=== PATIENT | female | born 1985 | race African-American/Black ===

== ENCOUNTER 2017-09-03 17:50 | Inpatient (IN) | payer OTHER ==
[2017-09-03] MEDS ORDERED: TUBERCULIN PPD 5 TU/0.1ML SYRINGE (IN PATIENT USE ONLY) ID ONE ×2 (18:14→22:15)
[2017-09-03] MEDS ORDERED: AMPICILLIN - 2 GM in SODIUM CHLORIDE 100 ML IVPB ONE (18:15)
[2017-09-03] MEDS ORDERED: DEXTROSE 5%-LACTATED RINGERS 1,000 ML IV SCH (18:30)
[2017-09-03 18:45] VITALS: BMI 35.0
[2017-09-03 19:08] LABS: BASO % 0.4 % (0-2.0); EOS % 0.6 % (0-4.5); HEMATOCRIT 32.9 % (32.4-45.2); HEMOGLOBIN 10.9 GM/dL (10.7-15.3); LYMPH % 11.7 % (8-40); MCH 29.8 pg (25.7-33.7); MEAN CELL VOLUME 90.2 fl (80-96); MONO % 10.4 % (3.8-10.2); NEUT % 76.9 % (42.8-82.8); PLATELET COUNT 274 K/MM3 (134-434); RBC 3.65 M/mm3 (3.60-5.2); RDW 14.9 % (11.6-15.6); WHITE BLOOD COUNT 8.3 K/mm3 (4.0-10.0)
[2017-09-03] MEDS ORDERED: PROMETHAZINE HCL 25 MG/1 ML VIAL IVPUSH ONE (19:15)
[2017-09-03] MEDS ORDERED: BUTORPHANOL TARTRATE 1 MG/ML VIAL IVPUSH ONE (19:15)
[2017-09-03 19:20] LABS: INR 0.93 (0.82-1.09); PROTHROMBIN TIME (PATIENT) 10.5 SEC (9.98-11.88)
[2017-09-03 19:23] LABS: ACTIVATED PTT 25.6 SECONDS (26.9-34.4)
[2017-09-03 19:31] LABS: ANION GAP 8 (8-16); BLOOD UREA NITROGEN 9 mg/dL (7-18); CALCIUM 8.2 mg/dL (8.5-10.1); CHLORIDE 106 mmol/L (98-107); CO2 25 mmol/L (21-32); CREATININE 0.9 mg/dL (0.55-1.02); GLUCOSE,RANDOM 90 mg/dL (74-106); POTASSIUM 4.1 mmol/L (3.5-5.1); SODIUM 139 mmol/L (136-145)
[2017-09-03] MEDS ORDERED: AMPICILLIN SODIUM 1 GM VIAL ONE (21:46)
[2017-09-03] MEDS: ELECTROLYTE-148 SOLN 1,000 ML IV SCH (22:00)
[2017-09-03] MEDS: AMPICILLIN - 1 GM in SODIUM CHLORIDE 100 ML IVPB SCH (22:05)
[2017-09-04] MEDS ORDERED: AMPICILLIN SODIUM 1 GM VIAL ONE ×4 (01:57→17:59)
[2017-09-04] MEDS: AMPICILLIN - 1 GM in SODIUM CHLORIDE 100 ML IVPB SCH ×6 (02:15→23:29)
--- NOTE | 2017-09-04 06:52 | HP ---
Past Medical History - Primary Care Physician PCP:: Josefa Kruse - Admission Chief Complaint: 31 yo G P EDC EGA 37.4 admitted due to srom at 5 pm. Pt with SGAand was schelduled for induction. IVF shortened cervix on progesterone. Followed by M due to suspected SGA low panarama. HIV neg. GBS neg History of Present Illness: 31 yo EDC 09/07 ega 37.6 weeks admitted due to srom hx of short cervix on progesterone Hx fibroids IVF low panarama SGA pregnacy followed by MFM HIV neg hx fibroids HSV hx History Source: Patient - Past Medical History ...: 3 ...Para: 0 ...Term: 0 ...: 0 ...Spon : 2 ...Induced : 0 ...Multiple Gestation: 0 ...LMP: 12/17/16 ... Weeks Gestation by Dates: 37.1 ...EDC by Dates: 09/23/17 ...EDC by Sono: 09/19/17 - Past Surgical History Past Surgical History: Yes: Appendectomy Hx Myomectomy: No Hx Transabdominal Cerclage: No - Smoking History Smoking history: Never smoked Have you smoked in the past 12 months: No - Alcohol/Substance Use Hx Alcohol Use: No History of Substance Use: reports: None - Social History Usual Living Arrangement: Yes: With Spouse History of Recent Travel: No Home Medications - Allergies Allergies/Adverse Reactions: Allergies Allergy/AdvReac Type Severity Reaction Status Date / Time No Known Drug Allergies Allergy Verified 09/03/17 18:16 - Home Medications Home Medications: Ambulatory Orders Vit/Iron Fum/Folic AC [ Tablet] 1 tab PO DAILY 05/30/17 Progesterone, Micronized [Endometrin] 100 mg VG HS 05/30/17 Review of Systems - Review of Systems Constitutional: reports: No Symptoms Eyes: reports: No Symptoms HENT: reports: No Symptoms Neck: reports: No Symptoms Cardiovascular: reports: No Symptoms Respiratory: reports: No Symptoms Gastrointestinal: reports: No Symptoms Genitourinary: reports: No Symptoms Breasts: reports: No Symptoms Reported Musculoskeletal: reports: No Symptoms Integumentary: reports: No Symptoms Neurological: reports: No Symptoms Endocrine: reports: No Symptoms Hematology/Lymphatic: reports: No Symptoms Psychiatric: reports: No Symptoms Physical Exam - Maternity Vital Signs: Vital Signs Temperature 98.1 F 09/04/17 06:00 Pulse Rate 75 09/04/17 06:00 Respiratory Rate 09/04/17 06:00 Blood Pressure 131/59 09/04/17 06:00 O2 Sat by Pulse Oximetry (%) Constitutional: Yes: Well Nourished, No Distress Lungs: Clear to auscultation Breast(s): Yes: WNL - Abdominal Exam/OB Fundal Height: 40 Number of Fetuses: Single Presentation: Vertex Category: I Decelerations: None - Vaginal Exam/OB Dilatation (cm): 2 Effacement (%): 80 Amniotic Membrane Status: Ruptured Amniotic Fluid: Yes: Clear Presentation: Vertex/Position - Physical Exam Psychiatric: Yes: WNL, Alert, Oriented - Labs Lab Results: CBC, BMP 09/03/17 18:50 09/03/17 18:50 Hemorrhage Risk Assessment - Risk Factors Medium Risk Factors: Yes: Large myomas Risk Score: 1 Risk Level: Medium Risk Problem List - Problems (1) IUGR (intrauterine growth restriction) affecting care of mother Code(s): O36.5990 - MATERN CARE FOR OTH OR SUSP POOR FETL GRTH, UNSP TRI, UNSP Qualifiers: Fetus number: single or unspecified fetus (2) Spontaneous rupture of membranes Code(s): GQC5227 - Assessment/Plan IUP at 37.6 weeks srom ivf pregnacy hx of cervical incompetence Prodromal labor Cat1 - spontaneous 2 min decel Plan Observation
--- NOTE | 2017-09-04 07:29 | PN ---
Ante-Partal Exam - Subjective Subjective: Pt with cramping Vital Signs: Vital Signs Temperature 98.1 F 09/04/17 06:00 Pulse Rate 75 09/04/17 06:00 Respiratory Rate 09/04/17 06:00 Blood Pressure 131/59 09/04/17 06:00 O2 Sat by Pulse Oximetry (%) Bleeding: No Headache: No - Contractions Contractions: Yes Regularity: Irregular Intensity: Mild Monitor Mode: External - Exam during Labor Category: I Monitor Decelerations: None Exam: Vaginal Dilatation (cm): 3 cm Amniotic Membrane Status: Intact Presentation: Vertex Station: 0 - Intrapartum Hemorrhage Risk Risk Score: 1 Risk Level: Medium Risk - Assessment/Plan Assessment/Plan: IVF preg srom iup @ 38 week Fibroids GBS neg Plan Pitocin if no active labor
[2017-09-04] MEDS ORDERED: OXYTOCIN 30 UNITS in 0.9% NS 30 UNIT/500 ML INFUS.BAG IVPB SCH (08:15)
[2017-09-04] MEDS: ELECTROLYTE-148 SOLN 1,000 ML IV SCH ×2 (11:24→16:15)
[2017-09-04] MEDS ORDERED: OXYTOCIN 15 UNITS/ LR 250 ML 250 ML IVPB SCH (11:45)
[2017-09-04] MEDS ORDERED: FENTANYL/BUPIVACAINE/NS/PF - PCEA - 50 ML DISP.SYRIN EP ONE (14:58)
[2017-09-04] MEDS ORDERED: FENTANYL/BUPIVACAINE/NS/PF - PCEA - 50 ML DISP.SYRIN EP SCH (15:20)
[2017-09-04] MEDS ORDERED: NALOXONE HCL 0.4 MG/ML VIAL IVPUSH PRN (15:27)
[2017-09-04] MEDS ORDERED: OXYTOCIN 20 UNITS in 0.9% NS 20 UNIT/1,000 ML INFUS.BAG IV ONE (17:14)
--- NOTE | 2017-09-04 18:28 | PN ---
Ante-Partal Exam - Subjective Subjective: Pt sp epidural Vital Signs: Vital Signs Temperature 98.0 F 09/04/17 18:00 Pulse Rate 81 09/04/17 18:00 Respiratory Rate 20 09/04/17 18:00 Blood Pressure 113/71 09/04/17 18:00 O2 Sat by Pulse Oximetry (%) 100 09/04/17 18:00 Bleeding: No Headache: No Visual changes: No Right upper quadrant pain: No - Contractions Contractions: Yes Regularity: Regular Intensity: Moderate Monitor Mode: External - Exam during Labor Variability: Moderate Category: I Monitor Accelerations: Present Monitor Decelerations: None Exam: Vaginal Dilatation (cm): FD Effacement (%): 100 Amniotic Membrane Status: Ruptured Amniotic Fluid: Clear Presentation: Vertex Station: 0 - Intrapartum Hemorrhage Risk Risk Score: 1 Risk Level: Medium Risk - Assessment/Plan Assessment/Plan: 2nd stage of labor 38 week fibroids Plan anticipate vaginal delivery dc Epidural
--- NOTE | 2017-09-04 20:17 | PN ---
Ante-Partal Exam - Subjective Subjective: Pt doing well Vital Signs: Vital Signs Temperature 98.0 F 09/04/17 18:00 Pulse Rate 94 H 09/04/17 18:45 Respiratory Rate 20 09/04/17 18:45 Blood Pressure 121/74 09/04/17 18:45 O2 Sat by Pulse Oximetry (%) 100 09/04/17 18:45 Headache: No Visual changes: No Right upper quadrant pain: No - Contractions Contractions: Yes Regularity: Regular Monitor Mode: External - Exam during Labor Category: II Monitor Decelerations: Variable Exam: Vaginal Dilatation (cm): FD Amniotic Membrane Status: Ruptured Amniotic Fluid: Clear Presentation: Vertex Station: +2 - Intrapartum Hemorrhage Risk Risk Score: 1 Risk Level: Medium Risk - Assessment/Plan Assessment/Plan: 2nd stage of labor Cat 1 Plan anticipate vaginal delivery
[2017-09-04] MEDS ORDERED: BENZOCAINE 28 GM HEMORRHOIDAL OINTMENT PR PRN (20:18)
[2017-09-04] MEDS ORDERED: IBUPROFEN 600 MG TABLET (FP) PO PRN (20:18)
[2017-09-04] MEDS ORDERED: BENZOCAINE 20% 57 GM BOTTLE TP PRN (20:18)
[2017-09-04] MEDS ORDERED: METHYLERGONOVINE MALEATE 0.2 MG/1 ML AMP IM PRN (20:18)
[2017-09-04] MEDS ORDERED: WITCH HAZEL 50% (TUCKS) 40 PAD/JAR PAD TP PRN (20:18)
[2017-09-04] MEDS ORDERED: ACETAMINOPHEN 325 MG TABLET (FP) PO PRN (20:18)
[2017-09-04] MEDS ORDERED: BISACODYL 10 MG SUPP.RECT RC PRN (20:18)
[2017-09-04] MEDS ORDERED: D5W-LR W/ 20 UNITS OXYTOCIN 1,000 ML IV SCH (20:30)
[2017-09-04] MEDS ORDERED: OXYTOCIN 20 UNITS in 0.9% NS 20 UNIT/1,000 ML INFUS.BAG IV SCH (20:45)
[2017-09-04 21:03] LABS: ARTERIAL BLOOD GAS pH 7.35 (7.35-7.45)
[2017-09-04 21:09] LABS: ARTERIAL BLD GAS O2 SATURATION 79.2 % (90-98.9); ARTERIAL BLOOD GAS PO2 38.3 mmHg (80-100)
[2017-09-04 21:10] LABS: VENOUS PC02 52.5 mmHg (38-52); VENOUS PH 7.27 (7.32-7.42)
[2017-09-04 21:11] LABS: VENOUS PO2 22.9 mmHg (28-48)
--- NOTE | 2017-09-04 22:33 | PN ---
Delivery - Delivery Type of Anesthesia: Epidural Episiotomy/Laceration: Midline EBL (cc): 300 (Nuchal X 1) Delivery, Single - Stages of Labor Date 1st Stage Initiatied: 09/03/17 Time 1st Stage Initiated: 14:00 Date 2nd Stage Initiated: 09/04/17 Time 2nd Stage Initiated: 17:10 Date of Delivery: 09/04/17 Time of Delivery: 19:59 Time Placenta Delivered: 20:00 Placenta: Yes: Spontaneous - Condition of Sound Assistant/Finance Analyst Present: No Infant Gender: Female Weight: 5 lb 13 oz Position: OA Total Hours ROM (Hrs/Mins): 27H0M - 1 Minute Total Score: 9 5 Minutes Total Score: 9 - [place] Feeding Plan Initial Plan: Exclusive throughout hospitalization
[2017-09-05] MEDS: AMPICILLIN - 1 GM in SODIUM CHLORIDE 100 ML IVPB SCH (02:21)
[2017-09-05 07:25] LABS: BASO % 0.4 % (0-2.0); EOS % 0.4 % (0-4.5); HEMATOCRIT 29.8 % (32.4-45.2); HEMOGLOBIN 9.7 GM/dL (10.7-15.3); LYMPH % 8.4 % (8-40); MCH 29.1 pg (25.7-33.7); MCHC 32.5 g/dl (32.0-36.0); MEAN CELL VOLUME 89.6 fl (80-96); MEAN PLT VOLUME 7.8 fl (7.5-11.1); MONO % 10.6 % (3.8-10.2); NEUT % 80.2 % (42.8-82.8); PLATELET COUNT 239 K/MM3 (134-434); RBC 3.32 M/mm3 (3.60-5.2); RDW 14.9 % (11.6-15.6)
--- NOTE | 2017-09-05 09:00 | PN ---
Post Progress Note - Subjective Subjective: 31 yo Para 1 status post vaginal delivery, seen and evaluated. Doing well. No complaints. Post Day: 1 Type of Delivery: Vital Signs: Vital Signs Temperature 97.9 F 09/05/17 06:00 Pulse Rate 91 H 09/05/17 06:00 Respiratory Rate 20 09/05/17 06:00 Blood Pressure 116/68 09/05/17 06:00 O2 Sat by Pulse Oximetry (%) 99 09/04/17 21:00 Breast Exam: Yes: Soft Uterus: Yes: Fundus Firm Abdomen/GI: Yes: Abdomen soft, Tolerating PO Lochia: Yes: Rubra Lochia, amount: Moderate Extremities: Yes: Calves non-tender Activity: Ambulating - Labs Labs: CBC WBC 12.0 K/mm3 (4.0-10.0) H D 09/05/17 07:00 RBC 3.32 M/mm3 (3.60-5.2) L 09/05/17 07:00 Hgb 9.7 GM/dL (10.7-15.3) L D 09/05/17 07:00 Hct 29.8 % (32.4-45.2) L 09/05/17 07:00 MCV 89.6 fl (80-96) 09/05/17 07:00 MCH 29.1 pg (25.7-33.7) 09/05/17 07:00 MCHC 32.5 g/dl (32.0-36.0) 09/05/17 07:00 RDW 14.9 % (11.6-15.6) 09/05/17 07:00 Plt Count 239 K/MM3 (134-434) 09/05/17 07:00 MPV 7.8 fl (7.5-11.1) 09/05/17 07:00 Neutrophils % 80.2 % (42.8-82.8) 09/05/17 07:00 Lymphocytes % 8.4 % (8-40) D 09/05/17 07:00 Monocytes % 10.6 % (3.8-10.2) H 09/05/17 07:00 Eosinophils % 0.4 % (0-4.5) 09/05/17 07:00 Basophils % 0.4 % (0-2.0) 09/05/17 07:00 Problem List - Problems (1) Status post normal vaginal delivery Code(s): INQ7389 - Assessment/Plan Status post vaginal delivery Stable Continue routine care
--- NOTE | 2017-09-06 07:07 | DS ---
Physical Exam-SALES APPLICATIONS ENGINEER Vital Signs: Vital Signs Temperature 98.6 F 09/05/17 22:00 Pulse Rate 87 09/05/17 22:00 Respiratory Rate 20 09/05/17 22:00 Blood Pressure 109/52 09/05/17 22:00 O2 Sat by Pulse Oximetry (%) 99 09/04/17 21:00 Constitutional: Yes: Well Nourished, No Distress Cardiovascular: Yes: WNL Respiratory: Yes: WNL Gastrointestinal: Yes: WNL ....Post : Yes: Uterus firm, Uterus non-tender Musculoskeletal: Yes: WNL Extremities: Yes: WNL Edema: No Labs: CBC, BMP 09/05/17 07:00 09/03/17 18:50 Delivery - Delivery Type of Anesthesia: Epidural Episiotomy/Laceration: Midline EBL (cc): 300 (Nuchal X 1) Delivery, Single - Stages of Labor Date 1st Stage Initiatied: 09/03/17 Time 1st Stage Initiated: 14:00 Date 2nd Stage Initiated: 09/04/17 Time 2nd Stage Initiated: 17:10 Date of Delivery: 09/04/17 Time of Delivery: 19:59 Time Placenta Delivered: 20:00 Placenta: Yes: Spontaneous - Condition of Superintendent Service/Risk And Compliance Analytics Director Present: No Gender: Female Weight: 5 lb 13 oz Position: OA Total Hours ROM (Hrs/Mins): 27H0M - 1 Minute Total Score: 9 5 Minutes Total Score: 9 - Feeding Plan Initial Plan: Exclusive throughout hospitalization Discharge Summary Reason For Visit: LABOR Current Active Problems IUGR (intrauterine growth restriction) affecting care of mother (Acute) Spontaneous rupture of membranes (Acute) Status post normal vaginal delivery (Acute) Procedures: Principal: Normal Vaginal delivery Condition: Good - Instructions Referrals: Josefa Kruse MD [Staff Physician] - Disposition: HOME - Home Medications Comprehensive Discharge Medication List: Ambulatory Orders Vit/Iron Fum/Folic AC [ Tablet] 1 tab PO DAILY 05/30/17 Progesterone, Micronized [Endometrin] 100 mg VG HS 05/30/17 Ibuprofen [Motrin -] 600 mg PO QID PRN #28 tablet 09/04/17
[2017-09-06 08:47] VITALS: BP 115/64; PULSE 76; TEMP 97.6
== END 2017-09-06 13:40 | disposition home or self-care (01) | DRG 775 ==
LOC: JLDR 17:50 → J3W 09-04 22:51
PROVIDERS: ADMIT Obstetrics & Gynecology; ATTEND Obstetrics & Gynecology
PROC: 10E0XZZ Delivery of Products of Conception, External Approach (ICD-10-PCS; principal; 2017-09-04)
PROC: 0W8NXZZ Division of Female Perineum, External Approach (ICD-10-PCS; 2017-09-04)
DX: O36.5930 Maternal care for other known or suspected poor fetal growth, third trimester, not applicable or unspecified (principal); O34.13 Maternal care for benign tumor of corpus uteri, third trimester; D25.9 Leiomyoma of uterus, unspecified; Z3A.37 37 weeks gestation of pregnancy; Z37.0 Single live birth
CPT/HCPCS: 36415; 36600; 59409; 71046-TC; 80048; 82803; 85025; 85610; 85730; 86593; 86850; 86900; 86901; 87389

== ENCOUNTER 2018-04-30 07:41 | Day surgery (SDC) | payer OTHER ==
[2018-04-26 14:02] VITALS: BMI 30.3
--- NOTE | 2018-04-30 09:28 | HP ---
History & Physical Update - History History: No Change - Physical Physical: No Change - Assessment Assessment: No Change - Plan Plan: No Change (No change in HP)
[2018-04-30] MEDS ORDERED: MIDAZOLAM HCL 2 MG/2 ML SINGLE DOSE VIAL ONE (09:33)
[2018-04-30] MEDS ORDERED: IBUPROFEN 400 MG TABLET (FP) PO PRN (09:44)
[2018-04-30] MEDS ORDERED: ACETAMINOPHEN 325 MG TABLET (FP) PO PRN (09:44)
[2018-04-30] MEDS ORDERED: DEXAMETHASONE SOD PHOSPHATE 4 MG/1 ML VIAL ONE (09:48)
[2018-04-30] MEDS ORDERED: LIDOCAINE HCL/PF 2% SDV 5ML VIAL ONE (09:48)
[2018-04-30] MEDS ORDERED: PROPOFOL 20 ML ONE (09:50)
[2018-04-30] MEDS ORDERED: oxyCODONE HCL 5 MG TABLET PO PRN (10:38)
[2018-04-30] MEDS ORDERED: ONDANSETRON 4 MG/2 ML VIAL IVPUSH PRN (10:38)
--- NOTE | 2018-04-30 10:40 | OP ---
Operative Note - Note: Operative Date: 04/30/18 Pre-Operative Diagnosis: Submucosal myoma Operation: Hysteroscopic mYomectomy. Suction DC Findings: Submucosal myoma seen Post-Operative Diagnosis: Same as Pre-op Surgeon: Josefa Kruse Anesthesiologist/THERMODYNAMICS ENGINEER: Rosalino Fowler Anesthesia: General Estimated Blood Loss (mls): 25 Operative Report Dictated: Yes
[2018-04-30] MEDS ORDERED: LACTATED RINGERS SOLUTION 1,000 ML IV SCH (10:45)
[2018-04-30 12:17] VITALS: TEMP 97.7
[2018-04-30] MEDS ORDERED: ONDANSETRON 4 MG/2 ML VIAL ONE (13:20)
[2018-04-30] MEDS ORDERED: ONDANSETRON 4 MG/2 ML VIAL IVPB ONE (13:25)
[2018-04-30 15:26] VITALS: BP 114/86; PULSE 63
--- NOTE | 2018-04-30 19:51 | OP ---
DATE OF OPERATION: 04/30/2018 PREOPERATIVE DIAGNOSES: Menorrhagia, submucous myoma, endometrial polyps. OPERATION: Hysteroscopic myomectomy and suction dilatation and curettage. POSTOPERATIVE DIAGNOSES: Endometrial polyps and submucosal myoma, removed. SURGEON: Josefa Kruse MD BREAKER OILER: None. ANESTHESIOLOGIST: Rosalino Fowler MD ANESTHESIA: General. ESTIMATED BLOOD LOSS: 25 mL PROCEDURE: Patient was taken to the operating room, placed in dorsal lithotomy position, prepped and draped in the usual sterile fashion. Timeout was performed in accordance with hospital regulation. Speculum was placed in the vagina. Anterior lip of the cervix grasped with a single-tooth tenaculum. Cervix was then dilated to accommodate the resectoscope. Endometrial polyps and submucous myoma were seen. Cautery and cutting of the endometrial polyps and submucosal myoma. Cavity was noted to be concaved with myoma; so, a better cavity was then created by removal of the myoma. Cauterization of bleeding was done. Suction D&C was then performed. All instruments were removed. Polyp forceps were then used to remove any submucosal myoma. Estimated blood loss 25 mL. Patient tolerated the procedure well and was taken to recovery room in stable condition. Pad count was noted to be normal, and fluid deficit was 300 mL. JOSEFA KRUSE M.D. [id number]
--- NOTE | 2018-05-01 14:41 | PATH ---
Surgical Pathology Report Patient Name: ANURAG DUDLEY [facility]. Rec. #: [id number] /Age/Gender: 1985 (Age: 32) / F Account: [id number] Location: [facility] SURGICAL Taken: 04/30/2018 Received: 04/30/2018 Reported: 05/01/2018 Physicians: Josefa Kruse M.D. Specimen(s) Received SUBMUCOUS MYOMA Clinical History Irregular bleeding, endometrial polyp Final Diagnosis UTERUS, SUBMUCOUS MYOMA, HYSTEROSCOPIC MYOMECTOMY, SUCTION DILATION AND CURETTAGE: POLYPOID FRAGMENTS OF PROLIFERATIVE ENDOMETRIUM AND SMOOTH MUSCLE CONSISTENT WITH SUBMUCOSAL LEIOMYOMA. Electronically Signed Taniya Moseley M.D. Gross Description Received in formalin labeled "submucous myoma," is a 3 g, 3.3 x 2.8 x 0.4 cm aggregate of hodges soft tissue fragments. The formalin is filtered and the specimen is entirely submitted in 2 cassettes. /04/30/2018 saudi04/30/2018
== END 2018-04-30 14:30 | disposition home or self-care (01) ==
LOC: JASU-SURG 07:41
PROVIDERS: ATTEND Obstetrics & Gynecology
PROC: 0UB98ZZ Excision of Uterus, Via Natural or Artificial Opening Endoscopic (ICD-10-PCS; principal; 2018-04-30 08:30)
PROC: 0UDB7ZX Extraction of Endometrium, Via Natural or Artificial Opening, Diagnostic (ICD-10-PCS; 2018-04-30 08:30)
PROC: 0UJD8ZZ Inspection of Uterus and Cervix, Via Natural or Artificial Opening Endoscopic (ICD-10-PCS; 2018-04-30 08:30)
DX: N92.0 Excessive and frequent menstruation with regular cycle (principal); N84.0 Polyp of corpus uteri; D25.0 Submucous leiomyoma of uterus
CPT/HCPCS: 86850; 86900; 86901; 88305-TC; 94760

== ENCOUNTER 2020-02-16 19:40 | Inpatient (IN) | payer OTHER ==
[2020-02-16] MEDS: ELECTROLYTE-148 SOLN 1,000 ML IV SCH (20:00)
[2020-02-16 20:23] VITALS: BMI 37.5
[2020-02-16 20:47] LABS: BASO % 0.4 % (0-2.0); EOS % 0.7 % (0-4.5); HEMATOCRIT 39.1 % (32.4-45.2); HEMOGLOBIN 13.2 GM/dL (10.7-15.3); LYMPH % 15.1 % (8-40); MCH 34.2 pg (25.7-33.7); MCHC 33.8 g/dl (32.0-36.0); MEAN CELL VOLUME 101.3 fl (80-96); MEAN PLT VOLUME 8.3 fl (7.5-11.1); MONO % 10.8 % (3.8-10.2); PLATELET COUNT 229 K/MM3 (134-434); RBC 3.86 M/mm3 (3.60-5.2); RDW 14.3 % (11.6-15.6); WHITE BLOOD COUNT 8.5 K/mm3 (4.0-10.0)
[2020-02-16 20:55] LABS: INR 0.9 (0.83-1.09); PROTHROMBIN TIME (PATIENT) 10.6 SEC (9.7-13.0)
[2020-02-16] MEDS ORDERED: PROMETHAZINE HCL 25 MG/1 ML VIAL IVPUSH ONE (21:06)
[2020-02-16] MEDS ORDERED: DINOPROSTONE 10 MG VAGINAL SUPPOSITORY VG ONE (21:11)
[2020-02-16 21:15] LABS: BLOOD UREA NITROGEN 8.1 mg/dL (7-18); CALCIUM 9.2 mg/dL (8.5-10.1); CREATININE 0.9 mg/dL (0.55-1.3); POTASSIUM 3.8 mmol/L (3.5-5.1)
[2020-02-16] MEDS ORDERED: OXYTOCIN 30 UNITS in 0.9% NS 30 UNIT/500 ML INFUS.BAG IVPB ONE (21:28)
[2020-02-16] MEDS ORDERED: OXYTOCIN 30 UNITS in 0.9% NS 30 UNIT/500 ML INFUS.BAG IVPB SCH (21:30)
--- NOTE | 2020-02-16 21:35 | HP ---
Past Medical History - Primary Care Physician PCP:: Josefa Kruse - Admission Chief Complaint: Elderly multigravida. iup at 39 week. induction History of Present Illness: 34 yo EDC 02/21/2020 EGA 39 week admitted for induction of labor +AFM No bleeding History Source: Patient Limitations to Obtaining History: No Limitations - Past Medical History ...: 5 ...Para: 1 ...Term: 1 ...Spon : 2 ...Induced : 1 ...Living Children: 1 ...EDC by Susan: 02/21/20 - Past Surgical History Past Surgical History: Yes: Appendectomy Hx Myomectomy: No Hx Transabdominal Cerclage: No - Smoking History Smoking history: Never smoked Have you smoked in the past 12 months: No - Alcohol/Substance Use Hx Alcohol Use: No History of Substance Use: reports: None - Social History Usual Living Arrangement: Yes: With Spouse Do you think of yourself as: Straight/Heterosexual History of Recent Travel: No Home Medications - Allergies Allergies/Adverse Reactions: Allergies Allergy/AdvReac Type Severity Reaction Status Date / Time No Known Drug Allergies Allergy Verified 02/16/20 20:09 - Home Medications Home Medications: Ambulatory Orders Pnv No.95/Ferrous Fum/Folic AC [ Vitamin Tablet] 1 each PO DAILY 12/11/19 Review of Systems - Review of Systems Constitutional: reports: No Symptoms Eyes: reports: No Symptoms HENT: reports: No Symptoms Neck: reports: No Symptoms Cardiovascular: reports: No Symptoms Respiratory: reports: No Symptoms Gastrointestinal: reports: No Symptoms Genitourinary: reports: No Symptoms Breasts: reports: No Symptoms Reported Musculoskeletal: reports: No Symptoms Integumentary: reports: No Symptoms Neurological: reports: No Symptoms Endocrine: reports: No Symptoms Hematology/Lymphatic: reports: No Symptoms Psychiatric: reports: No Symptoms Physical Exam - Maternity Vital Signs: Vital Signs Temperature 98.8 F 02/16/20 20:12 Pulse Rate 95 H 02/16/20 20:12 Respiratory Rate 02/16/20 20:12 Blood Pressure 117/67 02/16/20 20:12 O2 Sat by Pulse Oximetry (%) Constitutional: Yes: Well Nourished, No Distress, Anxious Neck: Yes: WNL Cardiovascular: Yes: WNL, Regular Rate and Rhythm Lungs: Clear to auscultation Breast(s): Yes: WNL - Abdominal Exam/OB Fundal Height: 39 Number of Fetuses: Single Presentation: Vertex Contractions: Yes Regularity: Irregular Intensity: Unaware Monitor Mode: External Heart Rate Location: [facility] Category: I Accelerations: Non-Uniform Decelerations: None - Vaginal Exam/OB Vaginal Bleeding: No Dilatation (cm): 3-4 Effacement (%): 80 Amniotic Membrane Status: Intact Presentation: Vertex/Position - Physical Exam Musculoskeletal: Yes: WNL Extremities: Yes: WNL Edema: No Psychiatric: Yes: WNL, Alert, Oriented - Labs Lab Results: CBC, BMP 02/16/20 20:15 02/16/20 20:15 Hemorrhage Risk Assessment - Risk Factors Risk Score: 1 Risk Level: Medium Risk Problem List - Problems (1) Elderly multigravida in third trimester Code(s): O09.523 - SUPERVISION OF ELDERLY MULTIGRAVIDA, THIRD TRIMESTER (2) 39 weeks gestation of Code(s): Z3A.39 - 39 WEEKS GESTATION OF Assessment/Plan Elderly Multigr Cat 1 39 week Plan Pitocin augmentation pt desires epidural
[2020-02-16] MEDS ORDERED: OXYTOCIN 20 UNITS in 0.9% NS 20 UNIT/1,000 ML INFUS.BAG IV ONE (22:44)
[2020-02-16] MEDS ORDERED: LIDOCAINE HCL 1% PRESERVATIVE FREE - 30ML VIAL ONE (22:44)
[2020-02-17] MEDS: ELECTROLYTE-148 SOLN 1,000 ML IV SCH ×2 (00:20→02:44)
[2020-02-17] MEDS ORDERED: FENTANYL/BUPIVACAINE/NS/PF - PCEA - 50 ML DISP.SYRIN EP ONE (01:19)
[2020-02-17] MEDS ORDERED: PCA PUMP NR ONE (01:19)
[2020-02-17] MEDS ORDERED: BUPIVACAINE HCL/PF 0.25% (2.5MG/ML) 10 ML VIAL ONE ×2 (01:35→04:55)
[2020-02-17] MEDS ORDERED: NALOXONE HCL 0.4 MG/ML VIAL IVPUSH PRN (01:58)
[2020-02-17] MEDS ORDERED: FENTANYL/BUPIVACAINE/NS/PF - PCEA - 50 ML DISP.SYRIN EP SCH ×2 (02:00→04:47)
[2020-02-17] MEDS: BUTORPHANOL TARTRATE 1 MG/ML VIAL IVPB SCH (02:37)
--- NOTE | 2020-02-17 03:59 | PN ---
Ante-Partal Exam - Subjective Subjective: Called to evaluate due to late decels with low BP after epidural Vital Signs: Vital Signs Temperature 98.3 F 02/17/20 00:00 Pulse Rate 84 02/17/20 03:00 Respiratory Rate 20 02/17/20 03:00 Blood Pressure 61/28 L 02/17/20 03:00 O2 Sat by Pulse Oximetry (%) 100 02/17/20 03:00 Bleeding: No Headache: No Visual changes: No Right upper quadrant pain: No - Contractions Contractions: No Regularity: Irregular Monitor Mode: External - Exam during Labor Heart Rate: 150 Variability: Moderate Category: II Monitor Accelerations: Present Monitor Decelerations: Late Exam: Vaginal Dilatation (cm): 4 cm Amniotic Fluid: Clear Presentation: Vertex Station: -1 - Intrapartum Hemorrhage Risk Risk Score: 0 Risk Level: Low Risk - Assessment/Plan Assessment/Plan: Cat 2 due to low BP after epidural anesthesia SP meds to inc BP sp pitocin DCED will resume after cat 1 Plan Observe and restart pitocin if Cat 1
[2020-02-17] MEDS ORDERED: BISACODYL 10 MG SUPP.RECT PR PRN (06:58)
[2020-02-17] MEDS ORDERED: BENZOCAINE 28 GM HEMORRHOIDAL OINTMENT PR PRN (06:58)
[2020-02-17] MEDS ORDERED: WITCH HAZEL 50% (TUCKS) 40 PAD/JAR PAD TP PRN (06:58)
[2020-02-17] MEDS ORDERED: METHYLERGONOVINE MALEATE 0.2 MG/1 ML AMP IM PRN (06:58)
[2020-02-17] MEDS ORDERED: BENZOCAINE 20% 57 GM BOTTLE TP PRN (06:58)
--- NOTE | 2020-02-17 07:22 | PN ---
Ante-Partal Exam - Subjective Subjective: Pt with pressure to push Vital Signs: Vital Signs Temperature 97.8 F 02/17/20 06:00 Pulse Rate 92 H 02/17/20 06:45 Respiratory Rate 20 02/17/20 06:45 Blood Pressure 126/76 02/17/20 06:45 O2 Sat by Pulse Oximetry (%) 100 02/17/20 06:45 Bleeding: No Headache: No Visual changes: No Right upper quadrant pain: No - Contractions Contractions: Yes Monitor Mode: External - Exam during Labor Heart Rate: 150 Variability: Moderate Heart Rate Location: [facility] Category: I Monitor Accelerations: Present Exam: Vaginal Dilatation (cm): 10 Effacement (%): 100 Amniotic Membrane Status: Ruptured Presentation: Vertex - Intrapartum Hemorrhage Risk Risk Score: 0 Risk Level: Low Risk - Assessment/Plan Assessment/Plan: Cat 1 anticipate vaginal delivery
--- NOTE | 2020-02-17 07:23 | PN ---
Delivery - Delivery Vaginal Delivery: No Problems Type of Anesthesia: Epidural Episiotomy/Laceration: None EBL (cc): 250 Delivery, Single - Stages of Labor Placenta: Yes: Spontaneous - Condition of Shift Manager/Annealer Present: No Gender: Female Position: OA - [place] Feeding Plan Initial Plan: Elected not to breastfeed exclusively throughout hospitalization
[2020-02-17] MEDS ORDERED: OXYTOCIN 20 UNITS in 0.9% NS 20 UNIT/1,000 ML INFUS.BAG IV SCH (07:30)
[2020-02-17 08:14] LABS: CORD HCO3 23.6 mmHg (20-29); CORD PCO2 43.5 mmHg (30-78); CORD pH 7.353 (7.14-7.44)
[2020-02-17 08:16] LABS: CORD HCO3 27.2 mmHg (20-29); CORD PCO2 58.6 mmHg (30-78); CORD pH 7.284 (7.14-7.44)
[2020-02-17] MEDS: ACETAMINOPHEN 325 MG TABLET (FP) PO PRN ×2 (10:08→17:27)
[2020-02-17] MEDS: IBUPROFEN 600 MG TABLET (FP) PO PRN ×2 (10:08→17:28)
[2020-02-17] MEDS ORDERED: SENNOSIDES/DOCUSATE COMBO (SENNA PLUS) TABLET (UD) PO SCH (22:00)
[2020-02-18 08:49] VITALS: BP 124/79; PULSE 86; TEMP 98.1
[2020-02-18 09:08] LABS: BASO % 0.4 % (0-2.0); EOS % 0.7 % (0-4.5); HEMATOCRIT 38.8 % (32.4-45.2); HEMOGLOBIN 13.1 GM/dL (10.7-15.3); LYMPH % 16.6 % (8-40); MCH 34.5 pg (25.7-33.7); MCHC 33.7 g/dl (32.0-36.0); MEAN CELL VOLUME 102.4 fl (80-96); MEAN PLT VOLUME 8.2 fl (7.5-11.1); MONO % 7.4 % (3.8-10.2); NEUT % 74.9 % (42.8-82.8); PLATELET COUNT 201 K/MM3 (134-434); RBC 3.79 M/mm3 (3.60-5.2); RDW 14.1 % (11.6-15.6); WHITE BLOOD COUNT 9.1 K/mm3 (4.0-10.0)
--- NOTE | 2020-02-25 12:43 | DS ---
Physical Exam-PLATFORM STAPLER Vital Signs: Vital Signs Temperature 98.1 F 02/18/20 11:00 Pulse Rate 86 02/18/20 11:00 Respiratory Rate 20 02/18/20 11:00 Blood Pressure 124/79 02/18/20 11:00 O2 Sat by Pulse Oximetry (%) 99 02/18/20 11:00 Constitutional: Yes: Well Nourished, No Distress Gastrointestinal: Yes: WNL, Soft ....Post : Yes: Uterus firm, Uterus non-tender Neurological: Yes: WNL, Alert, Oriented Labs: CBC, BMP 02/18/20 08:20 02/16/20 20:15 Delivery - Delivery Vaginal Delivery: No Problems Type of Anesthesia: Epidural Episiotomy/Laceration: None EBL (cc): 250 Delivery, Single - Stages of Labor Date 1st Stage Initiatied: 02/17/20 Time 1st Stage Initiated: 00:00 Date 2nd Stage Initiated: 02/17/20 Time 2nd Stage Initiated: 06:45 Date of Delivery: 02/17/20 Time of Delivery: 07:08 Time Placenta Delivered: 07:10 Placenta: Yes: Spontaneous - Condition of Shelver/Alternative Education Teacher Present: Evan: Morgan Tena Infant Gender: Female Weight: 6 lb 14 oz Position: OA Total Hours ROM (Hrs/Mins): 3hrs/40mins - 1 Minute Total Score: 9 5 Minutes Total Score: 9 - Feeding Plan Initial Plan: Elected not to breastfeed exclusively throughout hospitalization Discharge Summary Problems reviewed: Yes Procedures: Principal: Normal vaginal delivery Condition: Good - Instructions Diet, Activity, Other Instructions: Physical activity Resume your normal everyday activity as tolerated no heavy lifting or exercise until seen by your surgeon. You may walk unlimited bogdan of and climb stairs. You may resume driving the car when you feel safe and comfortable behind the wheel. No sexual activity as instructed. Wound care If you have a bandage, leave it on, and keep dry for 48-72 hours. After that time discard the outer bandage. If they are tapes on the skin under the out of bandage leave them in place. They will peel off in the next 7 to 10 days. Do Not Peel them off. You may shower the day after surgery. If there are tapes present on the skin, you may shower over them. Diet There are no dietary restrictions. Eat healthy, high-fiber foods. Drink 6 to 8 glasses of liquid each day. This will assist in keeping your bowels are regular. Pain management You may take Tylenol or acetaminophen or Ibuprofen (for example, Motrin, Advil etc.) from my pain prescription medication is ordered should be taken as prescribed for moderate to severe pain. Call MD for any of the following: Severe pain not relieved by medication Fever of 101 or higher Excessive bleeding or drainage on dressing Inability to urinate Referrals: Josefa Kruse MD [Staff Physician] - Disposition: HOME - Home Medications Comprehensive Discharge Medication List: Ambulatory Orders Pnv No.95/Ferrous Fum/Folic AC [ Vitamin Tablet] 1 each PO DAILY 12/11/19
== END 2020-02-18 11:10 | disposition home or self-care (01) | DRG 807 ==
LOC: JLDR 19:40 → J3W 02-17 08:53
PROVIDERS: ADMIT Obstetrics & Gynecology; ATTEND Obstetrics & Gynecology
PROC: 10E0XZZ Delivery of Products of Conception, External Approach (ICD-10-PCS; principal; 2020-02-17)
DX: O80 Encounter for full-term uncomplicated delivery (principal); Z37.0 Single live birth; Z3A.39 39 weeks gestation of pregnancy
CPT/HCPCS: 36415; 36600; 59409; 80048; 82803; 85025; 85610; 85730; 86780; 86850; 86900; 86901; 87340; U0003